=== PATIENT | female | born 1955 ===

== ENCOUNTER 2019-02-22 12:10 | Emergency (ER) | payer MEDICAID ==
[~2019-02-22] VITALS: Ht 157.5 cm; Wt 63.3 kg
[2019-02-22 12:55] LABS: BASOPHILS # (AUTO) 0.03 x10^3/uL (0-0.1); BASOPHILS % (AUTO) 0 % (0-1); EOSINOPHILS # (AUTO) 0.05 x10^3/uL (0-0.4); EOSINOPHILS % (AUTO) 1 % (1-7); LYMPHOCYTES # (AUTO) 2.52 x10^3/uL (1-3.4); LYMPHOCYTES % (AUTO) 35 % (22-44); MD NO; MEAN CORPUSCULAR HEMOGLOBIN 31.3 pg (27.0-34.8); MEAN CORPUSCULAR HGB CONC 34.6 g/dL (32.4-35.8); MEAN CORPUSCULAR VOLUME 90.3 fL (80-100); MEAN PLATELET VOLUME 7.6 fL (7.4-10.4); MONOCYTES # (AUTO) 0.67 x10^3/uL (0.2-0.8); MONOCYTES % (AUTO) 9 % (2-9); NEUTROPHILS # (AUTO) 4.03 x10^3/uL (1.8-6.8); NEUTROPHILS % (AUTO) 55 % (42-75); PLATELET COUNT 255 x10^3/uL (130-400); RED BLOOD COUNT 4.67 x10^6/uL (3.82-5.3); RED CELL DISTRIBUTION WIDTH 13.5 % (9.6-15.2)
[2019-02-22 13:07] LABS: ALBUMIN 4.3 g/dL (3.4-5.0); ANION GAP 7 mmol/L (5-15); CALCIUM 9.4 mg/dL (8.5-10.1); CHLORIDE 107 mmol/L (98-107); CREATININE 0.79 mg/dL (0.55-1.02)
[2019-02-22 13:11] LABS: TROPONIN I < 0.015 ng/mL (0.000-0.045)
--- NOTE | 2019-02-22 13:56 | NUR ---
Pt can not remember names of any of her medications.
[2019-02-22] MEDS ORDERED: KETOROLAC 30 MG/1 ML IM ONE (14:30)
[2019-02-22] MEDS ORDERED: KETOROLAC 30 MG/1 ML ONE (14:42)
[2019-02-22 15:22] VITALS: BP 159/90
== END 2019-02-22 15:25 | disposition home or self-care (01) ==
LOC: ED 15:19
DX: M75.92 Shoulder lesion, unspecified, left shoulder (principal); I10 Essential (primary) hypertension
CPT/HCPCS: 36415; 71046; 73030; 80048; 82040; 84484; 85025; 93005; 96372; 99284; J1885

== ENCOUNTER 2019-08-14 10:39 | Emergency (ER) | payer OTHER, MEDICAID ==
[2019-08-14 10:42] VITALS: BP 156/74
--- NOTE | 2019-08-14 11:33 | NUR ---
TASK RN: IN TO GIVE PT ICE PACK. PT OUT OF ROOM TO IMAGING. ICE PACK BEDSIDE.
--- NOTE | 2019-08-14 12:32 | NUR ---
zayra wrap applied by edt, pt tolerated well. pt given dc instructions and script, educated regarding naproxen rx. pt amb to dc desk with steady gait, nadn at dc.
== END 2019-08-14 13:10 | disposition home or self-care (01) ==
LOC: ED 12:22
DX: S40.011A Contusion of right shoulder, initial encounter (principal); S80.01XA Contusion of right knee, initial encounter; I10 Essential (primary) hypertension; W01.0XXA Fall on same level from slipping, tripping and stumbling without subsequent striking against object, initial encounter; Y93.89 Activity, other specified; Y92.410 Unspecified street and highway as the place of occurrence of the external cause; Y99.8 Other external cause status
CPT/HCPCS: 99283